=== PATIENT | female | born 2000 | race Caucasian/White ===

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

== ENCOUNTER 2023-12-06 11:08 | Emergency (ER) | payer MEDICAID, SELFPAY ==
[2023-12-06 11:09] VITALS: BP 107/83; PULSE 113; RESP 18; TEMP 37.2; O2SAT 100; BMI 22.0
[2023-12-06 11:46] VITALS: BP 103/64
[2023-12-06 11:46] LABS: Mucous, Urine 0 SEEN /hpf (<or=2+)
[2023-12-06 11:55] LABS: Color, Urine Yellow (Yellow); Glucose, Dipstick Normal (Normal); Ketone-Dipstick Negative (Negative); Leukocyte Esterase-Dipstick Negative /ul (Negative); Nitrite-Dipstick Negative (Negative); Occult Blood-Urine Negative /ul (Negative); Protein-Dipstick Negative (Negative); Specific Gravity, Urine 1.015 (1.002-1.030); Urine Bilirubin Dipstick Negative (Negative); Urine Clarity Sl. Cloudy (Clear); Urine Urobilinogen Normal (Normal)
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
[2023-12-06 11:56] LABS: Internal QC Validated? YES +Cl - CLEAR BKGD; Record Kit Lot#,Urine Preg 718086
[2023-12-06 11:59] LABS: Pregnancy, Urine Positive Negative
[2023-12-06 12:03] LABS: Red Blood Cells-Urine 0-5 SEEN /hpf (0-5); Squamous Epithelial Cells - UA 0-5 SEEN /hpf (5-10); White Blood Cells 0-5 SEEN /hpf (0-5)
[2023-12-06 12:04] LABS: Bacteria 1+ /hpf (None Seen)
[2023-12-06 12:32] VITALS: BP 111/78; PULSE 97; RESP 14; TEMP 36; O2SAT 99
== END 2023-12-06 12:47 | disposition home or self-care (01) ==
PROVIDERS: Emergency Provider Emergency Medicine; Visit Provider Emergency Medicine
DX: O99.891 Other specified diseases and conditions complicating pregnancy (principal); O99.331 Smoking (tobacco) complicating pregnancy, first trimester; R10.30 Lower abdominal pain, unspecified; F17.290 Nicotine dependence, other tobacco product, uncomplicated; Z3A.09 9 weeks gestation of pregnancy
CPT/HCPCS: 81001; 81025; 99282

== ENCOUNTER 2024-05-19 08:15 | Outpatient (CLI) | payer MEDICAID, SELFPAY ==
[2024-05-19 08:20] VITALS: PULSE 110; O2SAT 99
[2024-05-19 08:21] VITALS: BP 116/75; PULSE 111; RESP 14; TEMP 36.6; O2SAT 100
[2024-05-19 09:02] VITALS: BMI 27.7
--- NOTE | 2024-05-19 19:07 | OB.TRI.NOTE ---
HPI - General HPI Narrative GATO BOYCE, is a 23 F who presents to triage with decreased movement. Denies any loss of fluid, vaginal bleeding or contractions. Maternal Data Information AALIYAH Calculator Estimated Delivery Date Method Current WG Current Estimate 07/12/24 Manual 32w 2d PFSH PFSH Home Medications ?Medication ?Instructions ?Recorded ?Last Taken ?Type cetirizine 10 mg tablet (Zyrtec) 10 mg PO DAILY 06/21/21 Unknown History ondansetron 4 mg disintegrating 4 mg translingual Q8H 12/06/23 Unknown History tablet Allergy/AdvReac Type Severity Reaction Status Date / Time No Known Allergies Allergy Verified 12/06/23 11:09 Social History Smoking Status: Current every day smoker tobacco type: e-cigarettes substance use type: does not use ROS Eyes Eyes: Denies blurry vision Cardiovascular Cardiovascular: Reports none; Denies chest pain at rest, chest pain with activity or dizziness Respiratory/Chest Respiratory/Chest: Denies cough or dyspnea Gastrointestinal Gastrointestinal: Reports none and other; Denies diarrhea or vomiting Genitourinary Genitourinary: Denies dysuria Musculoskeletal Musculoskeletal: Reports none Integumentary Integumentary: Reports none; Denies rash Neurologic Neurologic: Denies dizziness, headache(s) or other visual disturbances Psychiatric Psychiatric: Reports none Physical Exam Const alert and no apparent distress General Appearance: cooperative Orientation / Consciousness: awake Exam Limitations: no limitations HEENT normocephalic Eyes General Eye: normal appearance of both eyes Neck full ROM Chest inspection of chest normal Resp normal respiratory effort and normal air movement Effort and Inspection: symmetric chest movement Auscultation: clear to auscultation bilaterally Cardio regular rate GI soft to palpation, non-tender and non-distended Inspection: and other Back/Spine normal ROM Extremity full ROM, normal capillary refill and no calf tenderness Skin no rashes or lesions noted Neuro oriented x3 and CN's II-XII intact bilaterally Psych mental status grossly normal NST FHR Rate Baby A Baseline: 140 Variability:: Moderate Accelerations:: 10 x 10 Decelerations:: Variable NST Reactive:: Yes FHR Category:: Category I Uterine Activity:: None Assessment & Plan (1) 32 weeks gestation of : (2) Decreased movement: PLAN: Plan NST reactive for gestational age. Patient has felt movement since arrival D/C home with kick counts and follow up in office
== END 2024-05-19 09:15 | disposition home or self-care (01) ==
LOC: WPOUT 08:18 → WP 08:19
PROVIDERS: Visit Provider Advanced Practice Midwife
DX: O36.8130 Decreased fetal movements, third trimester, not applicable or unspecified (principal); Z3A.32 32 weeks gestation of pregnancy; F17.290 Nicotine dependence, other tobacco product, uncomplicated; O99.333 Smoking (tobacco) complicating pregnancy, third trimester
CPT/HCPCS: 59025; 59050; 99221; G0378

== ENCOUNTER 2024-07-17 08:14 | Inpatient (IN) | payer MEDICAID, SELFPAY ==
[2024-07-17] VITALS (43 sets, daily range): BP systolic 101–135; BP diastolic 56–78; PULSE 91–122; RESP 14–18; TEMP 36.6–37.5; O2SAT 97–100; BMI 29.6
[2024-07-17 07:51] LABS: ROM Internal Control Test YES-OK TO RESULT pt. (Internal QC)
[2024-07-17 07:53] LABS: ROM Patient Test POSITIVE (Negative)
[2024-07-17 07:54] LABS: Record Kit Lot#, ROM+ K1660
[2024-07-17] MEDS: Lactated Ringers 1,000 ML 999 ML IV (08:35)
[2024-07-17 08:51] LABS: Absolute Lymphocyte Count 1.61 X10^3/uL (0.83-4.51); Absolute Neutrophil Count 8.9 X10^3/uL (2.0-7.7); Basophil# 0.03 X10^3/uL; Basophil% 0.3 % (0-1); Eosinophils% 1.7 % (0-5); Hematocrit 36.4 % (37-47); Hemoglobin 11.5 g/dL (12.0-15.0); Lymphocyte # 1.61 X10^3/ul (0.83-4.51); Lymphocyte % 13.7 % (19-41); Mean Corp Hgb Conc 31.6 g/dL (32-36); Mean Corpuscular Hgb 26.7 pg (27.0-32.0); Mean Corpuscular Volume 84.5 fL (81-99); Mean Platelet Vol. 10.6 fl (6.2-12.0); Monocyte# 0.95 X10^3/uL; Monocyte% 8.1 % (0-10); NRBC Flagged by Analyzer 0 % (0-5); Neutrophil # 8.89 X10^3/uL (2.7-7.7); Neutrophil % 75.4 % (47-70); Platelet Count 240 K/mm3 (150-450); RBC Distribution Width CV 14.6 % (11.6-14.6); RBC Distribution Width SD 44.9 fl (35.1-43.9); Red Blood Count 4.31 M/mm3 (4.2-5.4); White Blood Count 11.8 K/mm3 (4.4-11.0)
[2024-07-17 09:06] LABS: Amphetamine Urine VISTA NEGATIVE (<1000 ng/mL); Barbiturate Urine VISTA NEGATIVE (< 200 ng/mL); Benzodiazepine Urine VISTA NEGATIVE (< 200 ng/mL); Cocaine Urine VISTA NEGATIVE (< 300 ng/mL); Ecstacy Urine VISTA NEGATIVE (< 500 ng/mL); Methadone Urine VISTA NEGATIVE (< 300 ng/mL); PCP Urine VISTA NEGATIVE (< 25 ng/mL); THC Urine VISTA POSITIVE (< 50 ng/mL); Vista UDS pH Range 6
--- NOTE | 2024-07-17 09:12 | NURSING ---
reason for social service consult - patient uses THC daily, FOB states he is an alcoholic and patients both struggle with alcohol and drug use and when asked about housing states we just need to clean house but hesitated with quality of housing condition
[2024-07-17 09:25] LABS: Syphilis Antibodies Non-reactive
[2024-07-17] MEDS: Lactated Ringers 1,000 ML 200 ML IV ×3 (09:36→18:46)
[2024-07-17] MEDS: fentaNYL-bupivacaine (epidural) 100 ML BAG EPIDURAL ×3 (10:43→19:31)
[2024-07-17] MEDS: 0.9% Saline Lock 10 ML Syringe IV ×2 (12:56→18:47)
[2024-07-17] MEDS: Oxytocin 15 Units/NS 250ml 15 UNITS/250 ML IV.SOLN 2 UNITS IV (13:03)
[2024-07-17] MEDS: Acetaminophen 500 MG Tablet PO (16:06)
[2024-07-17] MEDS: Ondansetron 4 MG/2 ML Vial IV (16:43)
[2024-07-17] MEDS: Mag Hydrox/Al Hydrox/Simeth 30 ML UDC PO (20:30)
[2024-07-17] MEDS: DiphenhydrAMINE 50 MG/ML Syringe 25 MG IV (21:28)
[2024-07-17] MEDS: LACTATED RINGERS 500 ML 999 ML IV (22:08)
[2024-07-18] VITALS (20 sets, daily range): BP systolic 97–139; BP diastolic 45–86; PULSE 78–115; RESP 16; TEMP 36.2–37.4; O2SAT 97–98
[2024-07-18] MEDS: Oxytocin 15 Units/NS 250ml 15 UNITS/250 ML IV.SOLN 334 UNITS IV (00:44)
--- NOTE | 2024-07-18 01:06 | PCM.HP.OB ---
HPI - General General Date of Admission: 07/17/24 HPI Narrative GATO BOYCE, is a 23 F who presents 40w6d in active labor at term. SROM at home around 0530, clear. Presented to L&D with regular contractions and positive ROM plus. Maternal Data Information AALIYAH Calculator Estimated Delivery Date Method Current WG Current Estimate 07/12/24 Manual 40w 6d PFSH PFSH Medical History (Updated 07/18/24 @ 01:12 by Shilpa Cook CNM) Anxiety Depression Home Medications ?Medication ?Instructions ?Recorded ?Last Taken ?Type cetirizine 10 mg tablet (Zyrtec) 10 mg PO DAILY 06/21/21 Unknown History ondansetron 4 mg disintegrating 4 mg translingual Q8H 12/06/23 Unknown History tablet vit no.95-ferrous 1 tab PO DAILY 07/17/24 Unknown History fumarate 28 mg-folic acid 800 mcg tablet () Allergy/AdvReac Type Severity Reaction Status Date / Time No Known Allergies Allergy Verified 07/17/24 07:35 Social History Smoking Status: Current every day smoker tobacco type: e-cigarettes substance use type: does not use History Elective abortions Hx Para 0 Spontaneous abortions Hx # Term Pregnancies Ectopic pregnancies Hx # Pregnancies Multiple births # of living children NST FHR Rate Baby A Baseline: 145 Variability:: Moderate Accelerations:: 15 x 15 Decelerations:: None FHR Category:: Category I Uterine Activity:: every 2 minutes Vital Signs Vital Signs Vital Signs: 07/17/24 08:54 07/17/24 08:54 07/17/24 08:54 Temperature Temperature Source Temporal Pulse Rate 91 Respiratory Rate Blood Pressure 118/77 BP Systolic 118 BP Diastolic 77 Pulse Ox 07/17/24 08:54 07/17/24 08:54 07/17/24 10:16 Temperature 97.8 F Temperature Source Pulse Rate Respiratory Rate 16 Blood Pressure 119/75 BP Systolic 119 BP Diastolic 75 Pulse Ox 07/17/24 10:16 07/17/24 10:16 07/17/24 10:16 Temperature Temperature Source Pulse Rate 99 99 Respiratory Rate Blood Pressure BP Systolic BP Diastolic Pulse Ox 98 07/17/24 10:16 07/17/24 10:16 07/17/24 10:16 Temperature Temperature Source Temporal Pulse Rate 101 H Respiratory Rate 14 Blood Pressure BP Systolic BP Diastolic Pulse Ox 07/17/24 10:16 07/17/24 10:16 07/17/24 10:30 Temperature 98.6 F Temperature Source Pulse Rate 97 Respiratory Rate Blood Pressure BP Systolic BP Diastolic Pulse Ox 99 07/17/24 10:30 07/17/24 10:35 07/17/24 10:35 Temperature Temperature Source Pulse Rate 98 Respiratory Rate Blood Pressure BP Systolic BP Diastolic Pulse Ox 99 99 07/17/24 10:35 07/17/24 10:39 07/17/24 10:39 Temperature Temperature Source Pulse Rate 95 Respiratory Rate 14 Blood Pressure 106/65 BP Systolic 106 BP Diastolic 65 Pulse Ox 07/17/24 10:40 07/17/24 10:40 07/17/24 10:41 Temperature Temperature Source Pulse Rate 98 Respiratory Rate 14 Blood Pressure BP Systolic BP Diastolic Pulse Ox 97 07/17/24 10:42 07/17/24 10:42 07/17/24 10:45 Temperature Temperature Source Pulse Rate 101 H 106 H Respiratory Rate Blood Pressure 117/75 BP Systolic 117 BP Diastolic 75 Pulse Ox 07/17/24 10:45 07/17/24 10:46 07/17/24 10:46 Temperature Temperature Source Pulse Rate 106 H Respiratory Rate Blood Pressure 113/73 BP Systolic 113 BP Diastolic 73 Pulse Ox 99 07/17/24 10:46 07/17/24 10:50 07/17/24 10:50 Temperature Temperature Source Temporal Pulse Rate 105 H Respiratory Rate 14 Blood Pressure BP Systolic BP Diastolic Pulse Ox 07/17/24 10:50 07/17/24 10:50 07/17/24 10:51 Temperature 99.1 F Temperature Source Pulse Rate Respiratory Rate Blood Pressure 114/68 BP Systolic 114 BP Diastolic 68 Pulse Ox 100 07/17/24 10:51 07/17/24 10:55 07/17/24 10:55 Temperature Temperature Source Pulse Rate 106 H 113 H Respiratory Rate Blood Pressure BP Systolic BP Diastolic Pulse Ox 99 07/17/24 10:56 07/17/24 10:56 07/17/24 11:00 Temperature Temperature Source Pulse Rate 114 H 97 Respiratory Rate Blood Pressure 114/60 BP Systolic 114 BP Diastolic 60 Pulse Ox 07/17/24 11:00 07/17/24 11:03 07/17/24 11:03 Temperature Temperature Source Pulse Rate 109 H Respiratory Rate Blood Pressure 116/73 BP Systolic 116 BP Diastolic 73 Pulse Ox 99 07/17/24 11:05 07/17/24 11:05 07/17/24 11:06 Temperature Temperature Source Pulse Rate 111 H Respiratory Rate Blood Pressure 115/73 BP Systolic 115 BP Diastolic 73 Pulse Ox 99 07/17/24 11:06 07/17/24 11:10 07/17/24 11:10 Temperature Temperature Source Pulse Rate 109 H 94 Respiratory Rate Blood Pressure BP Systolic BP Diastolic Pulse Ox 99 07/17/24 11:11 07/17/24 11:11 07/17/24 11:15 Temperature Temperature Source Pulse Rate 108 H 95 Respiratory Rate Blood Pressure 122/75 H BP Systolic 122 BP Diastolic 75 Pulse Ox 07/17/24 11:15 07/17/24 11:17 07/17/24 11:17 Temperature Temperature Source Pulse Rate 122 H Respiratory Rate Blood Pressure 122/75 H BP Systolic 122 BP Diastolic 75 Pulse Ox 100 07/17/24 11:20 07/17/24 11:20 07/17/24 11:23 Temperature Temperature Source Pulse Rate 118 H Respiratory Rate Blood Pressure 121/78 H BP Systolic 121 BP Diastolic 78 Pulse Ox 99 07/17/24 11:23 07/17/24 11:26 07/17/24 11:26 Temperature Temperature Source Pulse Rate 96 117 H Respiratory Rate Blood Pressure 118/73 BP Systolic 118 BP Diastolic 73 Pulse Ox 07/17/24 11:31 07/17/24 11:36 07/17/24 11:36 Temperature Temperature Source Pulse Rate 95 Respiratory Rate Blood Pressure 116/71 114/68 BP Systolic 116 114 BP Diastolic 71 68 Pulse Ox 07/17/24 11:41 07/17/24 11:41 07/17/24 11:46 Temperature Temperature Source Pulse Rate 100 Respiratory Rate Blood Pressure 111/76 107/75 BP Systolic 111 107 BP Diastolic 76 75 Pulse Ox 07/17/24 11:46 07/17/24 11:51 07/17/24 11:51 Temperature Temperature Source Pulse Rate 98 101 H Respiratory Rate Blood Pressure 106/66 BP Systolic 106 BP Diastolic 66 Pulse Ox 07/17/24 11:56 07/17/24 11:56 07/17/24 12:54 Temperature 98.5 F Temperature Source Temporal Pulse Rate Respiratory Rate Blood Pressure 101/58 L BP Systolic 101 BP Diastolic 58 Pulse Ox 07/17/24 12:54 07/17/24 12:54 07/17/24 12:54 Temperature Temperature Source Temporal Pulse Rate 96 96 Respiratory Rate Blood Pressure BP Systolic BP Diastolic Pulse Ox 07/17/24 12:54 07/17/24 12:54 07/17/24 12:54 Temperature 98.4 F Temperature Source Pulse Rate Respiratory Rate 14 Blood Pressure BP Systolic BP Diastolic Pulse Ox 98 07/17/24 14:00 07/17/24 14:00 07/17/24 14:00 Temperature Temperature Source Temporal Pulse Rate 108 H Respiratory Rate Blood Pressure 105/56 L BP Systolic 105 BP Diastolic 56 Pulse Ox 07/17/24 14:00 07/17/24 14:00 07/17/24 14:00 Temperature 98.9 F Temperature Source Pulse Rate Respiratory Rate 14 Blood Pressure BP Systolic BP Diastolic Pulse Ox 98 07/17/24 15:35 07/17/24 15:35 07/17/24 15:35 Temperature Temperature Source Temporal Pulse Rate 111 H Respiratory Rate Blood Pressure 107/61 BP Systolic 107 BP Diastolic 61 Pulse Ox 07/17/24 15:35 07/17/24 15:35 07/17/24 15:35 Temperature Temperature Source Pulse Rate 109 H Respiratory Rate 14 Blood Pressure BP Systolic BP Diastolic Pulse Ox 99 07/17/24 15:35 07/17/24 16:13 07/17/24 16:13 Temperature 98.8 F Temperature Source Pulse Rate 102 H Respiratory Rate Blood Pressure 117/68 BP Systolic 117 BP Diastolic 68 Pulse Ox 07/17/24 16:13 07/17/24 16:13 07/17/24 16:13 Temperature Temperature Source Tympanic Pulse Rate 107 H Respiratory Rate Blood Pressure BP Systolic BP Diastolic Pulse Ox 99 07/17/24 16:13 07/17/24 16:13 07/17/24 16:13 Temperature 99.2 F H Temperature Source Pulse Rate Respiratory Rate 15 Blood Pressure BP Systolic BP Diastolic Pulse Ox 100 07/17/24 17:35 07/17/24 17:35 07/17/24 17:35 Temperature Temperature Source Tympanic Pulse Rate 101 H Respiratory Rate Blood Pressure 117/59 L BP Systolic 117 BP Diastolic 59 Pulse Ox 07/17/24 17:35 07/17/24 17:35 07/17/24 17:35 Temperature 99.5 F H Temperature Source Pulse Rate Respiratory Rate 16 Blood Pressure BP Systolic BP Diastolic Pulse Ox 100 07/17/24 18:49 07/17/24 18:49 07/17/24 18:49 Temperature Temperature Source Temporal Pulse Rate 98 Respiratory Rate Blood Pressure 117/72 BP Systolic 117 BP Diastolic 72 Pulse Ox 07/17/24 18:49 07/17/24 18:49 07/17/24 19:16 Temperature 99.0 F Temperature Source Pulse Rate Respiratory Rate 16 Blood Pressure 125/70 H BP Systolic 125 BP Diastolic 70 Pulse Ox 07/17/24 19:16 07/17/24 19:16 07/17/24 19:16 Temperature Temperature Source Pulse Rate 115 H 106 H Respiratory Rate Blood Pressure BP Systolic BP Diastolic Pulse Ox 98 07/17/24 20:20 07/17/24 20:20 07/17/24 20:20 Temperature Temperature Source Temporal Pulse Rate 99 Respiratory Rate 16 Blood Pressure BP Systolic BP Diastolic Pulse Ox 07/17/24 20:20 07/17/24 20:20 07/17/24 20:21 Temperature 98.2 F Temperature Source Pulse Rate Respiratory Rate Blood Pressure 109/66 BP Systolic 109 BP Diastolic 66 Pulse Ox 98 07/17/24 20:21 07/17/24 20:57 07/17/24 20:57 Temperature Temperature Source Pulse Rate 94 95 Respiratory Rate Blood Pressure BP Systolic BP Diastolic Pulse Ox 97 07/17/24 20:57 07/17/24 20:57 07/17/24 20:57 Temperature 99.2 F H Temperature Source Temporal Pulse Rate Respiratory Rate 18 Blood Pressure BP Systolic BP Diastolic Pulse Ox 07/17/24 20:58 07/17/24 20:58 07/17/24 22:40 Temperature Temperature Source Temporal Pulse Rate 93 Respiratory Rate Blood Pressure 135/69 H BP Systolic 135 BP Diastolic 69 Pulse Ox 07/17/24 22:40 07/17/24 22:40 07/17/24 22:40 Temperature Temperature Source Pulse Rate 96 Respiratory Rate 16 Blood Pressure 127/58 H BP Systolic 127 BP Diastolic 58 Pulse Ox 07/17/24 22:40 07/17/24 22:40 07/18/24 01:02 Temperature 99.1 F Temperature Source Pulse Rate Respiratory Rate Blood Pressure 129/70 H BP Systolic 129 BP Diastolic 70 Pulse Ox 99 07/18/24 01:02 Temperature Temperature Source Pulse Rate 111 H Respiratory Rate Blood Pressure BP Systolic BP Diastolic Pulse Ox Weight Weight: 151 lb 12.8 oz Body Mass Index (BMI) 29.6 Labs Labs Labs: Blood Type A POSITIVE Antibody Screen NEGATIVE Hct 36.4 % (37-47) L Hgb 11.5 g/dL (12.0-15.0) L Syphilis Total Ab Non-reactive GBS negative Rubella non immune HIV negative HepC negative HBsAG negative RPR negative A positive GC/CT negative Assessment & Plan (1) Vaping nicotine dependence, tobacco product: (2) Marijuana use during : (3) History of depression: (4) Rubella non-immune status, antepartum: (5) History of anxiety: (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 Maciel collaborative physician and notified of patient status, above assessment, and plan.
--- NOTE | 2024-07-18 01:06 | EX.PCM.OBRPT ---
Assessment & Plan (1) Vaginal delivery: (2) First degree perineal laceration: (3) Shoulder dystocia, delivered: COMMENT: Mild, relieved by McRobert's Maternal Data Information AALIYAH Calculator Estimated Delivery Date Method Current WG Current Estimate 07/12/24 Manual 40w 6d Vaginal Delivery Maternal Presentation Maternal Presentation: Active Labor and Spontaneous Rupture of Membranes Operative Information Date of Procedure: 07/18/24 Pre-Operative Diagnosis: Active Labor, SROM Post-Operative Diagnosis: , 1st degree perineal laceration Surgery / Procedure Performed: Spontaneous Vaginal Delivery Type of Anesthesia: Epidural Estimated Blood Loss: 350ml Time of Delivery: 00:39 Findings Description of Procedure: Progressed to complete with urge to push. Epidural for pain management, mildly effective and increased pain. of viable male infant over 1st degree perineal laceration. APGARS 8,9 respectively. head delivered with body not forthcoming, McRobert's position and then body immediately forthcoming. Mild shoulder dystocia lasting approximately 40 seconds. Placed on maternal abdomen, strong cry. Mouth and nares suctioned for secretions. Pitocin started for active 3rd stage management. Cord doubly clamped and cut by FOB after pulsations ceased, delayed cord clamping. Placenta delivered intact via sue, 3 vessel cord intact. Perineum inspected and revealed 1st degree perineal laceration. Repaired with 3.0 vicryl rapide and lidocaine. Fundus firm and hemostasis achieved. EBL 350ml. Mom and baby stable, planning to breastfeed. Family bonding well. notified of delivery. Presentation: Vertex and DEMETRIUS Amniotic Membrane Rupture Type: Spontaneous Amniotic Fluid Description: Clear Placental Delivery Description: Spontaneous Placenta Disposition: [facility] Cord Vessel Description: 3 Vessels Cord Entanglement: None Infant A Gender: Male (1 minute): 9 (5 minute): 9 Delayed Cord Clamping: Yes Post Vaginal Delivery Medications Given After Delivery: IV Pitocin Episiotomy Description: None Laceration: Perineal Extension/lac and 1st degree Complication Complications: None
[2024-07-18] MEDS: Oxytocin 15 Units/NS 250ml 15 UNITS/250 ML IV.SOLN 83 UNITS IV (01:15)
[2024-07-18] MEDS: Benzocaine/Lanolin/Aloe Vera 85 GM Spray 1 SPRAY TOPICAL (08:42)
[2024-07-18] MEDS: Senna/Docusate Sodium 1 Tablet PO (08:42)
[2024-07-19 01:22] VITALS: BP 124/76; PULSE 104; RESP 16; TEMP 36.4; O2SAT 97
[2024-07-19 05:59] LABS: Absolute Lymphocyte Count 2.85 X10^3/uL (0.83-4.51); Absolute Neutrophil Count 14.4 X10^3/uL (2.0-7.7); Basophil# 0.05 X10^3/uL; Basophil% 0.3 % (0-1); Eosinophil# 0.32 X10^3/uL; Eosinophils% 1.7 % (0-5); Hemoglobin 9.6 g/dL (12.0-15.0); Lymphocyte # 2.85 X10^3/ul (0.83-4.51); Lymphocyte % 15.1 % (19-41); Mean Corpuscular Volume 84.5 fL (81-99); Mean Platelet Vol. 9.8 fl (6.2-12.0); Monocyte# 1.24 X10^3/uL; Monocyte% 6.6 % (0-10); NRBC Flagged by Analyzer 0 % (0-5); Neutrophil # 14.36 X10^3/uL (2.7-7.7); Neutrophil % 75.7 % (47-70); Platelet Count 226 K/mm3 (150-450); RBC Distribution Width CV 14.9 % (11.6-14.6); RBC Distribution Width SD 46.1 fl (35.1-43.9); Red Blood Count 3.55 M/mm3 (4.2-5.4); White Blood Count 18.9 K/mm3 (4.4-11.0)
[2024-07-19 08:00] VITALS: BP 121/81; PULSE 93; RESP 16; TEMP 36.3; O2SAT 97
--- NOTE | 2024-07-19 08:12 | NURSING ---
This nurse noticed a vape laying in bed next to patient. Told patient that she is not supposed to be vaping. Pt denies that she is vaping in her room.
--- NOTE | 2024-07-19 08:20 | PN.OBGYN_ITS ---
Subjective Subjective Doing well. No complaints. Voiding and ambulating without difficulty. Mild lochia. Breast feeding. Objective Data Objective Data Vital Signs: Vital Signs Temp Pulse Resp BP Pulse Ox O2 Del Method 97.3 F L 93 16 121/81 H 97 Room Air 07/19/24 08:00 07/19/24 08:00 07/19/24 08:00 07/19/24 08:00 07/19/24 08:00 07/19/24 08:00 Oxygen Delivery Method Room Air Weight: 68.855 kg Body Mass Index (BMI) 29.6 Intake & Output: Intake and Output for Last 24 Hours 07/17/24 07/18/24 07/19/24 23:59 23:59 23:59 Intake Total 2860.73 / 2860.73 1948.57 / 1948.57 Output Total 1175 / 1175 600 / 600 Balance 1685.73 / 1685.73 1348.57 / 1348.57 Lab / Micro Data 07/19/24 05:50 Labs: Laboratory Results - last 24 hr 07/19/24 05:50: WBC 18.9 H, RBC 3.55 L, Hgb 9.6 L, Hct 30.0 L, MCV 84.5, MCH 27.0, MCHC 32.0, RDW Std Deviation 46.1 H, RDW Coeff of Joseph 14.9 H, Plt Count 226, MPV 9.8, Immature Gran % (Auto) 0.600, Neut % (Auto) 75.7 H, Lymph % (Auto) 15.1 L, Armstrong % (Auto) 6.6, Eos % (Auto) 1.7, Baso % (Auto) 0.3, Absolute Neuts (auto) 14.4 H, Absolute Lymphs (auto) 2.85, Nucleated RBC % 0 ROS Constitutional Constitutional: Denies fatigue, fever(s) or malaise Eyes Eyes: Denies change in vision ENT HEENT: Denies dizziness or headache(s) Cardiovascular Cardiovascular: Denies chest pain, dyspnea or lightheadedness Respiratory/Chest Respiratory/Chest: Denies cough or dyspnea Gastrointestinal Gastrointestinal: Denies change in bowel habits Genitourinary Genitourinary: Denies burning urination or genital lesions Integumentary Integumentary: Denies rash Neurologic Neurologic: Denies confusion, dizziness, headache(s), numbness or weakness Physical Exam Const alert and no apparent distress Narrative: Fundus firm, below umbilicus. Assessment & Plan (1) Shoulder dystocia, delivered: COMMENT: Mild, relieved by McRobert's (2) Vaginal delivery: (3) Vaping nicotine dependence, tobacco product: (4) Marijuana use during : PLAN: Plan Discharge home
--- NOTE | 2024-07-19 08:22 | DS.PCM_ITS ---
Providers Date of Admission: 07/17/24 Date of Discharge: 07/19/24 Primary Care Physician: No Primary Care Phys Reason For Visit: LABOR Diagnosis Discharge Diagnosis (1) Shoulder dystocia, delivered: Status: Acute Code(s): O66.0 - Obstructed labor due to shoulder dystocia (2) Vaginal delivery: Status: Acute Code(s): O80 - Encounter for full-term uncomplicated delivery (3) Vaping nicotine dependence, tobacco product: Status: Acute Code(s): F17.290 - Nicotine dependence, other tobacco product, uncomplicated (4) Marijuana use during : Status: Acute Code(s): O99.320 - Drug use complicating , unspecified trimester; F12.90 - Cannabis use, unspecified, uncomplicated Plan Discharge home Medications at Discharge Home Medications cetirizine 10 mg tablet (Zyrtec) 10 mg PO DAILY 06/21/21 vit no.95-ferrous fumarate 28 mg-folic acid 800 mcg tablet () 1 tab PO DAILY 07/17/24 Hospital Course Operations None Procedures None Summary of Care Provided Minutes Spent on Discharge: 20 Hospital Course: Presented with SROM. Delivered by with mild shoulder dystocia. Breast feeding Physical Exam Const alert and no apparent distress Narrative: Fundus firm, below umbilicus. Weight / BMI Weight Weight: 68.855 kg Body Mass Index (BMI) 29.6 ABG / Lab / Microbiology Data 07/19/24 05:50 Laboratory: Laboratory Results - last 24 hr 07/19/24 05:50: WBC 18.9 H, RBC 3.55 L, Hgb 9.6 L, Hct 30.0 L, MCV 84.5, MCH 27.0, MCHC 32.0, RDW Std Deviation 46.1 H, RDW Coeff of Joseph 14.9 H, Plt Count 226, MPV 9.8, Immature Gran % (Auto) 0.600, Neut % (Auto) 75.7 H, Lymph % (Auto) 15.1 L, Taliaferro % (Auto) 6.6, Eos % (Auto) 1.7, Baso % (Auto) 0.3, Absolute Neuts (auto) 14.4 H, Absolute Lymphs (auto) 2.85, Nucleated RBC % 0 D/C Instructions May resume sexual activity in: 6 weeks Please Follow Up With: Carly Maciel MD When: Follow up with our office in 1-2 and 6 weeks or as needed. [phone] Meaningful Use Info Meaningful Use Meaningful Use Diagnoses (Choose all that apply): None applicable Ischemic Stroke Statin Dosing Therapy Reference: STATIN DOSE THERAPY REFERENCE: * Patients > 75 years receive moderate or high dose statin therapy. * Patients 75 years or YOUNGER should receive HIGH intensity statin dose unless contraindicated. You will be required to document reason for non-treatment if statin daily dose does not meet guidelines. HIGH DOSE STATIN THERAPY DAILY Atorvastatin > than or = to 40 mg Rosuvastatin > than or = to 20 mg Amlodipine + Atorvastatin > than or = to 2.5/40 mg Ezetimibe + Simvastatin 10/80 mg Simvastatin 80mg Discharge Plan Admission Admit Date/Time: 07/17/24 08:14 Attending Provider: Shilpa Cook Primary Care Provider: Care Physician,No Primary Discharge Orders/Prescriptions Prescriptions: Continued cetirizine [Zyrtec] 10 mg Tablet 10 mg PO DAILY PNV cmb#95-ferrous fumarate-FA [] 28 mg iron- 800 mcg tablet 1 tab PO DAILY Discontinued ondansetron 4 mg tablet,disintegrating 4 mg translingual Q8H Patient Comments: dissolve 1 tablet ON TONGUE every 8 hours if needed for nausea Referrals / Follow Up: Care Physician,No Primary [Primary Care Provider] - Disposition Disposition (needs filled in before D/C Order can be placed): Home, Self Care
--- NOTE | 2024-07-19 11:53 | NURSING ---
Reviewed and agree with student charting that is used for educational and learning purposes.
[2024-07-19 12:10] VITALS: BP 123/70; PULSE 102; RESP 16; TEMP 36.3; O2SAT 100
--- NOTE | 2024-07-20 09:26 | CASEMGMT ---
Social Work Assessment Labor and Delivery Unit Patient Address: [address] [place] [address] Phone number:[phone] Date of Referral: 07/17/24 Time of Referral: 0910? Referred By: Shilpa Cook Date of Intervention: ??07/18/24 Time of Intervention:? 1200 Reason for Referral:? marijuana use during Sw completed chart review and acknowledges social work consult. Sw presented to bedside and introduced self to mother of baby (MOB- Keena) and father of baby (FOB- Yuniel Howell, : 02). Sw explained reason for sw involvement and completed psychosocial assessment. Sw completed majority of assessment, and then visitors presented to bedside, so sw left and agreed to return at later time. Sw returned to bedside to complete assessment later in day and met with MOB and FOB again. FOB then stepped out of room momentarially. At that time sw provided MOB with [place] Depression Scale and assessed for safety within the home. History obtained from: medical records, MOB and FOB. ??? Household composition: Parents report that currently residing in their two bedroom home them selves and LISA's step brother. Parents report that he will be residing with them for 6 months and then the will have his own room. Parents deny any issues or concerns with their current housing. Patient's parent/guardian status:? ?MOB states that she and FOB met through social media, and have been together for the past year. baby is first child for both parents. While meeting with MOB privately, sw assessed for any concerns regarding violence or intimate partner violence within their relationship and MOB denied. - Throughout conversation FOB had made statements regarding nursing staff and how they were too close to MOB while talking to her and this made him uncomfortable, reporting that his mind goes to the worst case scenario. But when prompted, he states that it just made him uncomfortable with how close the nurse was talking to MOB. MOB then accused FOJorge of being too overprotective. Medical History: ?ANTONIO is 23 year old female who is 1, para 0- now 1 following labor and delivery of . ANTONIO received routine care during with [facility]. ANTONIO presented to hospital and delivered baby via vaginal delivery on 07/18/24 in the mechanotherapist. Baby boy, Thor, was born weighing 8lb 11oz. MOB states that she is breast feeding and baby will be followed by Dr. Bell for pediatrics. Educational Status:? ANTONIO reports that she completed the 11th grade and dropped out of school just a couple of weeks before graduating. LISA states that he graduated from high school. Financial Status: LISA is employed outside of the home. He reports that he works for [employer] and is able to take one week off of work. MOB is not working at this time. ANTONIO is financially dependent upon LISA to help with fiances. Infant Supplies: Parents report that they have obtained all necessary baby supplies, including: car seat, safe sleep space, clothes, diapers and wipes. Childcare/Caregiver(s):?MOB will be the primary childcare provider/ caregiver to baby, along with FOJorge when he is not at work. Transportation:?? ANTONIO does not drive, she does not have her drivers license. LISA has his drivers license and a reliable vehicle. LISA states that when MOB has an appointment or baby has an appointment that they have to go to his employer is understanding and he is able to flex his work hours to take them to the appointments. Programs/Agencies Involved: ANTONIO is connected to community resources through [facility] (insurance: [employer]) and [facility]. MOB was reminded to call WIC and inform them that baby has been born. MOB was also encouraged to follow up with [employer] to apply for food stamps. Children Services/Legal Issues:???No history of children services involvement as parents. Sw informed MOB and FOB of need for sw to make referral to [facility] due to maternal substance use during . So stated that sw to inform Children Services of paternal alcohol use and parents mental health history. ANTONIO stated that she had talked to some of her friends about this and was informed that this would happen. MOB expressed understanding of need for sw to make referral. - Angel called [facility] and spoke to on-call, hotline screenerFilomena. Behavioral Health Issues: ??Mental Health History:?FOJorge states that he has been diagnosed with ADHD, anxiety and depression. FOB also states that his mom has told him she believes that he is Bi-polar, however he has never officially been diagnosed with that. ?FOB denies any medications prescribed at this time to help him manage his mental health symptoms. ANTONIO reports that she has also been diagnosed with ADHD, and anxiety and depression. MOB also is not prescribed any medications to help her manage her mental health symptoms. Angel asked ANTONIO to complete the [place] Depression Scale, her score was a 7. Sw provided education and support. Sw encouraged ANTONIO to talk to her OBGYN about getting started on something low dose to help her manage her mental health during this period. MOB stated that she will think about it. Sw also encouraged MOB to get connected to a mental health specialist to talk to as well. Sw educated ANTONIO on the benefits of a mental health specialist and how it is beneficial to talk to someone during this period, and to learn healthy and appropriate coping skills. ANTONIO expressed understanding, states that she had a counselor in the past, but has not talked to someone in a long time. ? Substance Use History:??ANTONIO states that she has smoked marijuana daily for years to help with her eating disorder and to help manage her mental health. ANTONIO states that she will go 2-3 days without eating, and then when eventually realizing that she has not eaten, she will look in the refrigerator to eat something, but nothing looks good to her. MOB states that the marijuana helps her have an appetite. FOJorge states that he drinks 3 bottle of Black Velvet every two weeks. LISA is unable to say how many drinks he has in a night, just that in two weeks time he goes through three bottles. ANTONIO denies alcohol during , but states that prior to she would drink on the weekends a couple of times a month. Family History:??Maternal grandma also has a history with alcohol and drug use. ANTONIO states that she is unsure what her exact history is. ANTONIO states that she is not close to her mom at this time, however her mom was a support person during labor and delivery. Drug Screens: MOB and baby were positive at time of delivery for THC (urine). Meconium is still pending. Family/Social Stressors:? Parents do not acknowledge any issues, concerns or stressors at this time. Parents report that they are excited baby is here. FOB does acknowledge that he is nervous to hold baby because baby is fragile. FOB states that he also thinks that the does not like me. FOB states that when he hold the baby he cries and when he hands him off to MOB, the baby stops crying. Sw educated FOB that is used to MOB's heartbeat and her voice, along with her smell. Sw stated that baby will also get used to FOB, and encouraged FOB to still be proactive in holding baby, doing skin to skin and care. FOB stated he would try, but still expressed feeling uneasy about it. Support Systems:MOB states that her best friend, her grandma and her mom are her biggest supports. Staff report that even though maternal grandma was here during labor and delivery she was not observed to be a good support for MOB. Depression/Shaken Baby/Safe Sleeping: Sw educated parents on signs and symptoms of baby blues and mood and anxiety disorders. Sw explained that MOB's [place] scores are already indicative of mild depression and anxiety. Sw also encouraged MOB to get reconnected with a mental health professional during this period. Sw asked MOB if she would like sw to help link her to someone, and MOB declined. Sw asked FOB if he would be able to recognize if MOB were struggling with her mental health. FOB stated that he would do his best, however stated that MOB is going to be by herself a lot of the time due to him working and then sleeping. FOB stated that he hopes that if she were to struggle with her mental health she would talk to him about it or someone else that would know how to respond to that. FOB stated that he is not sure how he would support MOB if she was going through a hard time. Sw encouraged parents to talk about this prior to their discharge from the hospital. Sw educated parents on shaken baby prevention and ABCs of safe sleep. Parents express understanding. At one time when sw presented to room, MOB was laying down in bed- awake, and baby was laying in bed with MOB on a pillow. Sw reiterated importance of safe sleep, and reminded MOB to place baby in isolette when he or MOB is sleeping. ASSESSMENT:? MOB and baby admitted following labor and delivery. Parents with significant mental health history and substance use prior to and during . MOB stated that she smoked marijuana daily to help with her appetite and to help ease her depression and anxiety. MOB and FOB aware that these concerns were going to be reported to [facility]. Parents have everything that they need for baby, and MOB reports to having some natural supports in place. LISA was observed to have a defensive and paranoid personality, when he expressed concern that a nurse was standing to close to MOB while talking with her. LISA made several inappropriate comments about baby to staff. doesn't he look like I just shit him out is one example. Parents were receptive to meeting with sw, and engaged politely throughout conversation. Lots of education and information provided. At several points of conversation MOB appeared to be overwhelmed and obviously sleep deprived, but always polite and willing to engage. Safe Plan of Care for infant related to substance use:?When discussing a safe plan of care with MOB. Sw explained to MOB that she should not smoke around baby- including nicotine and THC. Sw along with bedside nursing staff and , explained to MOB that if she choses to continue to smoke THC to assist with her eating ability and self medicate to help aide in her mental health, than she should stop breast feeding. Or if she wants to stop smoking marijuana than continuing to provide breast milk for her baby would be safe. Sw, bedside RN and all educated MOB on how THC remains in breast milk up to 12 days after use. Sw also educated MOB on the effects THC in breast milk has on baby (lethargic, slower to eat, and eat less when at the breast- eating for shorter period of times, can be slower to gain weight, and worse case potentially become failure to thrive). When discussing this LISA states I don't know about all of that, I was an 8# baby and look at me now. Sw explained that that reference has no correlation to this situation. - When discussing this plan with MOB, MOB stated: I am going to continue to smoke, and after I smoke I will pump and reserve that milk for when baby needs a downer. Then when I drink caffeine, I will pump and reserve that milk for when baby needs an upper. When I drink alcohol, I will pump and save that milk for milk baths for baby. MOB still not completely comprehending that when smoking THC it stays in her system for 12 days. Nursing staff, and sw all explained this and reiterated these concerns to MOB. The next day, MOB was still choosing to breast feed baby, with intentions of still smoking marijuana. All of these concerns were explained to Children Services. - Angel followed up with [facility] the following day (07/19). The hotline screener reported that the referral will automatically be screened in and assigned to an packing line worker due to baby testing positive at time of delivery. Hotline screener stated that due to marijuana being legal this will not hold up baby from being discharged with parents when medically ready for discharge. Sw passed along this follow up information to bedside RN who assisted parents in preparing for discharge on 07/19/ PLAN:?? No other services requested or indicated. MOB and baby to be discharged when medically ready. Parents were provided literature regarding: signs and symptoms of baby blues and mood and anxiety disorders, Help Me Grow, shaken baby prevention, ABCs of safe sleep and a list of county resources that are available for them should any needs present themselves. Hilary Chaves, WINDOW AND SIDING CRAFTSMAN, VOCATIONAL ED INSTRUCTOR
--- NOTE | 2024-08-15 10:08 | CASEMGMT ---
Labor and Delivery Supervisor [employer] Sw received mandated manager human resources letter indicating that referral made by this psychologist social on 07/18/24 was screened in. The assigned template worker is: Adina Sheth ([phone]. No other needs or concerns at this time. Hilary Chaves, SOLAR PROJECT MANAGER, DIRECTOR OF RESPIRATORY THERAPY
== END 2024-07-19 15:00 | disposition home or self-care (01) | DRG 560 ==
LOC: WPOUT 08:18 → WP 08:18
PROVIDERS: Admitting Provider Advanced Practice Midwife; Referring Provider Advanced Practice Midwife; Visit Provider Advanced Practice Midwife
DX: O42.02 Full-term premature rupture of membranes, onset of labor within 24 hours of rupture (principal); Z37.0 Single live birth; O99.324 Drug use complicating childbirth; F12.90 Cannabis use, unspecified, uncomplicated; F17.290 Nicotine dependence, other tobacco product, uncomplicated; O70.0 First degree perineal laceration during delivery; O66.0 Obstructed labor due to shoulder dystocia; O99.334 Smoking (tobacco) complicating childbirth; Z3A.40 40 weeks gestation of pregnancy; Z14.1 Cystic fibrosis carrier; Z78.9 Other specified health status; Z86.59 Personal history of other mental and behavioral disorders
CPT/HCPCS: 59025; 59050; 80307; 84112; 85025; 86780; 86850; 86900; 86901; 99221; J7120; A4216; G0378; J2405

== ENCOUNTER → 2025-04-06 | Outpatient (CLI) | payer MEDICAID, SELFPAY ==
--- NOTE | 2025-04-06 12:33 | US_ITS ---
PROCEDURE: TRANSVAGINAL W/PREG US 04/06/2025 REASON FOR EXAM: RSIDED PAIN, BLEEDING IN TECHNIQUE: TRANSVAGINAL W/PREG US COMPARISON: None. FINDINGS: Comments: LMP: February 13, 2025. Number of Gestational Sacs: 1 Gestational Sac Shape: Normal Number of Fetuses: 1 Heart Rate: 103 beats per minute (average) Yolk Sac: Present and unremarkable. Placenta: Presently not well-visualized Amniotic Fluid Volume: Subjectively normal for gestational age. Uterine Abnormalities: Findings suggestive of a 3.4 cm x 1.0 cm x 2.9 cm subchorionic hematoma. Ovaries / Adnexa: Resolving corpus luteum cyst in the right ovary. DIMENSIONS: Parameter Measurement / EGA [place] Rump Length: 2.5 mm/6 weeks and 0 days. Gestational Sac: 1.51 cm/6 weeks and 2 days. Yolk Sac: 2.7 mm/ ESTIMATED GESTATIONAL AGE: By Ultrasound: 6 weeks and 1 day By LMP: 7 weeks and 3 days ESTIMATED DATE OF DELIVERY: By Ultrasound: November 29, 2025 By LMP: November 20, 2025 US/Transvaginal w/Preg US IMPRESSION: Intrauterine gestation with a mean gestational age of 6 weeks and 1 day. Findings suggestive of a small subchorionic hematoma. Reading Location: [place] [address]
[2025-04-06 16:01] LABS: hCG Titer Quant., Serum 23824 mIU/mL (<9 non-preg)
== END | disposition home or self-care (01) ==
PROVIDERS: Referring Provider Obstetrics & Gynecology; Visit Provider Obstetrics & Gynecology
DX: O20.0 Threatened abortion (principal); O99.891 Other specified diseases and conditions complicating pregnancy; R10.9 Unspecified abdominal pain; Z3A.00 Weeks of gestation of pregnancy not specified
CPT/HCPCS: 36415; 76817; 84702

== ENCOUNTER 2025-04-17 06:57 | Emergency (ER) | payer MEDICAID, SELFPAY ==
[2025-04-17 06:58] VITALS: BP 116/61; PULSE 99; RESP 24; TEMP 36.7; O2SAT 100; BMI 25.1
--- NOTE | 2025-04-17 07:36 | EDS_ITS ---
HPI HPI - GI History of Present Illness Chief Complaint: Nausea/Vomiting Informant: patient Abdominal Pain/Flank Pain Quality: Cramping Maximum Severity: Mild Nausea/Vomiting/Emesis GI Symptom: Positive for Nausea and Vomiting Onset: Days Severity: Moderate Diarrhea/Melena/Hematochezia GI Symptom: Positive for Diarrhea Onset: Days Stool Quality: Positive for Loose Associated Symptoms Associated Symptoms: Negative for Dysuria, Frequency, Hematuria or Urgency Narrative Narrative: 24-year-old female G4, P1 Ab2 currently 7 weeks . First visit is scheduled for today. States she has had nausea vomiting diarrhea for last several days. Denies any fever. No dysuria. No vaginal bleeding. Only mild intermittent abdominal cramping currently no abdominal pain. States with a prior was diagnosed with hyperemesis. Prior similar symptoms: Yes Recent Illness/Hospitalization: No PFSH PFSH Medical History Marijuana use during Vaping nicotine dependence, tobacco product History of depression History of anxiety ADHD Home Medications ?Medication ?Instructions ?Recorded ?Last Taken ?Type vit no.95-ferrous 1 tab PO DAILY 07/17/24 Unk nown History fumarate 28 mg-folic acid 800 mcg tablet () Held on 04/17/25. Instructions: HASNT PICKED UP ondansetron HCl 4 mg tablet 4 mg PO Q8H PRN nausea and vomiting 04/06/25 Unknown History ondansetron 4 mg disintegrating 4 mg PO Q6H PRN nausea and 04/17/25 Unknown Rx tablet vomiting #14 tabs Allergy/AdvReac Type Severity Reaction Status Date / Time No Known Allergies Allergy Verified 04/17/25 06:57 Family History Grandmother Hypertension Uncle Diabetes Social History adopted: No household members: significant other, children and other details: roommate number of children: 1 current occupation: [employer] current occupational exposures/hazards: No pets and animals: Yes (Not managing litterbox ) pets and animals: cat(s) history of recent travel: No sexually active: Yes Smoking Status: Current every day smoker tobacco type: e-cigarettes second hand exposure: Yes alcohol intake: current alcohol intake frequency: holidays/special occasions only details: Not while substance use type: marijuana well-balanced diet: about half the time caffeine: Yes Type: coffee eating out: 1-3 times/week during the past year weight has: decreased > 10 lbs what type of physical activity do you participate in: walking frequency: 3-4 times per week duration: 15-30 minutes/day jarrell/synagogue: None seatbelt use: always do you feel safe at home: Yes additional social history: Fiance: Yuniel - maternal handler at [employer] ROS ROS ED ROS Narrative Nausea, vomiting diarrhea. Occasional abdominal cramping. Constitutional Constitutional ED: Denies chills or fever(s) ENT ENT ED: Denies ear pain Cardiovascular Cardiovascular: Denies chest pain Respiratory/Chest Respiratory/Chest: Denies cough or dyspnea Gastrointestinal Gastrointestinal: Reports diarrhea, nausea and vomiting; Denies abdominal pain or constipation Genitourinary Genitourinary ED: Denies dysuria or hematuria Musculoskeletal Musculoskeletal: Denies arthralgias, back pain, myalgias or neck pain Integumentary Denies abscess or Abrasions Neurologic Neurologic: Denies headache(s) Endocrine Endocrinology: Denies polydipsia Hematologic/Lymphatic Hematologic/Lymphatic: Denies easy bleeding Allergic/Immunologic Allergic/Immunologic ED: Denies mouth swelling EXAM Physical Exam Narrative Exam Narrative: Well-appearing 24-year-old female. Vital signs stable afebrile. Initial blood pressure 116/61. She does not look septic or toxic she does not look significantly dehydrated. H EENT exam pupils round reactive light. Moist mucous membranes. No facial droop. Neck nontender. No lymphadenopathy. Lungs clear to auscultation bilaterally. Heart regular rhythm rate about 95 no murmur. Chest wall ribs nontender. Abdomen soft nontender. Nondistended. Normal bowel sounds without peritoneal signs. No obstruction. Moving all 4 extremities. Normal strength. Normal range of motion. Nontender no edema. Back nontender. Neurologic exam awake alert. No focal motor deficits. Very benign appearing exam. Const Vital Signs: 04/17/25 06:58 04/17/25 08:57 04/17/25 10:00 Temperature 98.1 F Temperature Source Oral Pulse Rate 99 86 60 Respiratory Rate 24 H 20 H 18 Blood Pressure 116/61 102/53 L 105/78 Blood Pressure Mean 79 69 87 Pulse Ox 100 100 98 Oxygen Delivery Method Room Air Room Air Positive well nourished and well developed; Negative for obese, cachectic, contractures or unkempt General Appearance ED: well developed and NAD; Negative for unkempt, cachectic, contractures or pallor Nutritional Appearance: Negative for cachectic or obese HEENT Reports moist mucous membranes normocephalic and atraumatic Eyes PERRL and EOMs intact bilaterally Neck no lymphadenopathy, supple and no JVD Resp normal respiratory effort and clear to auscultation bilaterally Cardio regular rate, regular rhythm, S1 normal heart sound, S2 normal heart sound and no murmurs GI non-tender, non-distended and no masses Auscultation: normoactive bowel sounds Palpation: soft; Negative for tender, guarding or rebound tenderness present Back/Spine no CVA tenderness General Back: Negative for CVA tenderness Cervical Spine: Negative for cervical spine tenderness Thoracic Spine / Upper Back: Negative for thoracic spinal tenderness Lumbar Spine / Lower Back: Negative for lumbar spinal tenderness Extremity full ROM General Extremety ED: Negative for edema or tenderness General Extremity: Negative for edema Neuro CN's II-XII intact bilaterally and moves all extremities Sensorium / Orientation: alert, oriented to person, oriented to place and oriented to time; Negative for orientation impaired or confused Motor Exam: strength 5/5 throughout Psych mental status grossly normal and thought process normal Appearance: Negative for unkempt Mood & Affect: anxious Skin no wounds General Skin Exam: Negative for jaundice or pallor Lesions: no lesions Rashes: no rashes Trauma: Negative for abrasion Nails: Negative for discolored MDM MDM MDM Narrative Medical decision making narrative: 24-year-old female currently 6 7 weeks with nausea and vomiting for days to a week. Treated with IV fluids, Zofran and chemistries being obtained. She is having no other symptoms. She does not need any imaging her abdomen is benign she is having no vaginal bleeding. She has been treated for hyperemesis in the past. Repeat exam at 10:11 AM patient doing well. Nausea resolved. She is feeling much better. Repeat exam benign she clinically looks good. Abdomen is nontender. We went over her test results. History & Record Review Discussion w/independent historian: Patient and Family Additional record(s) reviewed:: Prior inpatient record, Prior outpatient record, Prior ED visit and Prior labs Lab Data Attestation: I reviewed the patient's lab results. Lab results narrative: Chemistries show a potassium of 3.2. Gap 11. BUN 7 creatinine 0.41. Glucose 98. Labs: Laboratory Results - last 24 hr 04/17/25 07:40 Sodium 138 Potassium 3.2 L Chloride 109 H Carbon Dioxide 18.0 L Anion Gap 11 BUN 7 Creatinine 0.41 L Estim Creat Clear Calc 171.99 Est GFR (MDRD) Non-Af 142 BUN/Creatinine Ratio 17.6 Glucose 98 Calcium 8.0 Discharge Plan Triage Chief Complaint: Nausea/Vomiting ED Provider: Demian Dick Dx/Rx/DC Orders Clinical Impression: Nausea & vomiting, First trimester Instructions: 1st Trimester, ED Vomiting (Adult) Prescriptions: New ondansetron 4 mg tablet,disintegrating 4 mg PO Q6H PRN (Reason: nausea and vomiting) Qty: 14 0RF No Action ondansetron HCl 4 mg tablet 4 mg PO Q8H PRN (Reason: nausea and vomiting) PNV cmb#95-ferrous fumarate-FA [] 28 mg iron- 800 mcg tablet 1 tab PO DAILY Primary Care Provider: Care Physician,No Primary Referrals: Care Physician,No Primary [Primary Care Provider] - Activity Restrictions/Additional Instructions: Plenty of fluids and rest. Increase your diet slowly as tolerated. Zofran as needed for nausea. You can swallow to let dissolve under your tongue. Follow-up with your FRAME GATE MORTISER OPERATOR. Return if worse. Print Language: French Disposition Disposition: Home, Self Care
[2025-04-17] MEDS: 0.9% Normal Saline (1000mL) 1,000 ML 1000 ML IV (08:04)
[2025-04-17 08:55] LABS: Anion Gap 11 (5-15); BUN 7 mg/dL (4-19); BUN/Creat Ratio 17.6 RATIO (10-20); Calcium,Total 8.0 mg/dL (7.6-11.0); Carbon Dioxide 18.0 mmol/L (21.0-32.0); Chloride 109 mmol/L (98-108); Estimated Creatinine Clearance 171.99 ml/min (50-250); Glucose 98 mg/dL (70-99); Potassium 3.2 mmol/L (3.3-5.1)
[2025-04-17 08:57] VITALS: BP 102/53; PULSE 86; RESP 20; O2SAT 100
[2025-04-17 10:00] VITALS: BP 105/78; PULSE 60; RESP 18; O2SAT 98
[2025-04-17 10:35] VITALS: BP 113/76; PULSE 67; RESP 18; TEMP 36.9; O2SAT 99
== END 2025-04-17 10:36 | disposition home or self-care (01) ==
PROVIDERS: Emergency Provider Emergency Medicine; Visit Provider Emergency Medicine
DX: O21.9 Vomiting of pregnancy, unspecified (principal); O99.331 Smoking (tobacco) complicating pregnancy, first trimester; F17.290 Nicotine dependence, other tobacco product, uncomplicated; Z3A.01 Less than 8 weeks gestation of pregnancy; O99.321 Drug use complicating pregnancy, first trimester; F12.90 Cannabis use, unspecified, uncomplicated
CPT/HCPCS: G0145; 36415; 80048; 80307; 85025; 86703; 86762; 86780; 86803; 86850; 86900; 86901; 87086; 87088; 87340; 87491; 87591; 88175; 96361; 96374; 99285; A4216; J2405

== ENCOUNTER → 2025-04-17 | Outpatient (CLI) | payer MEDICAID, SELFPAY ==
[2025-04-17 17:01] LABS: Hematocrit 37.2 % (37-47); Hemoglobin 12.4 g/dL (12.0-15.0); Immature Granulocytes Count 0.070 X10^3/uL (0.0-0.0); Mean Corp Hgb Conc 33.3 g/dL (32-36); Mean Corpuscular Volume 89.6 fL (81-99); Mean Platelet Vol. 10.2 fl (6.2-12.0); NRBC Flagged by Analyzer 0 % (0-5); Platelet Count 314 K/mm3 (150-450); RBC Distribution Width CV 12.5 % (11.6-14.6); RBC Distribution Width SD 40.8 fl (35.1-43.9); Red Blood Count 4.15 M/mm3 (4.2-5.4); White Blood Count 14.1 K/mm3 (4.4-11.0)
[2025-04-17 17:24] LABS: Barbiturate Urine NEGATIVE (< 200 ng/mL); Benzodiazepine Urine NEGATIVE (< 200 ng/mL); PCP Urine NEGATIVE (< 25 ng/mL); THC Urine PRESUMPTIVE POSITIVE (< 50 ng/mL)
[2025-04-17 17:37] LABS: HIV Nonreactive (Nonreactive); Hepatitis B Surface Antigen Nonreactive (Nonreactive); Hepatitis C Antibody Nonreactive (Nonreactive); Syphilis Antibodies Nonreactive (Nonreactive)
[2025-04-20 06:07] LABS: Chlamydia By Nucleic Acid AMP Negative (Negative); Gonococcus By Nucleic Acid AMP Negative (Negative)
== END | disposition home or self-care (01) ==
LOC: BWCLAB 13:35
PROVIDERS: Visit Provider Obstetrics & Gynecology
DX: O99.320 Drug use complicating pregnancy, unspecified trimester (principal); F12.90 Cannabis use, unspecified, uncomplicated; Z3A.00 Weeks of gestation of pregnancy not specified
CPT/HCPCS: 36415; 80307; 85025; 86703; 86762; 86780; 86803; 86850; 86900; 86901; 87086; 87340; 87491; 87591; G0145; 88175

== ENCOUNTER 2025-08-22 08:10 | Outpatient (CLI) | payer MEDICAID, SELFPAY ==
[2025-08-22 08:32] VITALS: BMI 25.1
[2025-08-22 08:33] VITALS: BP 100/61; PULSE 95; RESP 16; TEMP 37.2; O2SAT 97
--- NOTE | 2025-08-22 08:50 | OB.TRI.HP_ITS ---
HPI - General HPI Narrative GATO BOYCE, is a 24 F who presents with abdominla pain. she co right lowe rabdominla pain ovenright that is improving now spontaneoulsy denies any fevers, vb lof admits good fm no regular ctx Maternal Data Information AALIYAH Calculator Estimated Delivery Date Method Current WG Current Estimate 11/29/25 Ultrasound #1 26w 4d Other Estimates 11/20/25 LMP (Certain) 27w 6d 12/01/25 Ultrasound #2 26w 2d PFSH PFSH Medical History Marijuana use during Vaping nicotine dependence, tobacco product History of depression History of anxiety ADHD Home Medications ?Medication ?Instructions ?Recorded ?Last Taken ?Type vit no.95-ferrous 1 tab PO DAILY 07/17/24 Unk nown History fumarate 28 mg-folic acid 800 mcg tablet () Held on 04/17/25. Instructions: HASNT PICKED UP ondansetron 4 mg disintegrating 4 mg PO Q6H PRN nausea and 07/20/25 Unknown Rx tablet vomiting #90 tabs cephalexin 500 mg capsule 500 mg PO TID 7 days #21 cap s 08/23/25 Unknown Rx Allergy/AdvReac Type Severity Reaction Status Date / Time No Known Allergies Allergy Verified 08/22/25 08:59 Family History Grandmother Hypertension Uncle Diabetes Social History adopted: No household members: significant other, children and other details: roommate number of children: 1 current occupation: [employer] current occupational exposures/hazards: No pets and animals: Yes (Not managing litterbox ) pets and animals: cat(s) history of recent travel: No sexually active: Yes Smoking Status: Current every day smoker tobacco type: e-cigarettes second hand exposure: Yes alcohol intake: current alcohol intake frequency: holidays/special occasions only details: Not while substance use type: marijuana well-balanced diet: about half the time caffeine: Yes Type: coffee eating out: 1-3 times/week during the past year weight has: decreased > 10 lbs what type of physical activity do you participate in: walking frequency: 3-4 times per week duration: 15-30 minutes/day jarrell/episcopal: None seatbelt use: always do you feel safe at home: Yes additional social history: Fiance: Yuniel - maternal handler at [employer] History 4 Elective abortions Hx Para 1 Spontaneous abortions 2 Hx # Term Pregnancies 1 Ectopic pregnancies Hx # Pregnancies Multiple births # of living children 1 Past Pregnancies Del. Date Name GA/Weeks Outcome Route Bth Weight Infant Gen Labor Lgth Anesthesia Del Locatn Provider FOB 10/18/22 7 spontaneous 01/16/23 8 spontaneous 07/18/24 Thordeangelo Howell 41 live - full term 8lbs 11oz Male 20 hours epidural [facility] Shilpa Brice Delivery Date: 10/18/22 Last Updated by: Sera Hutton RN Cytote Delivery Date: 01/16/23 Last Updated by: Sera Hutton RN Cytotec Delivery Date: 07/18/24 Last Updated by: Sera Hutton RN Hyperemesis, Shoulder Dystocia Visit Details Expected Delivery Route/Plan Labor Preferences- CB/BF classes: [] labor support person: [] labor intervention preferences: [] pain management options preferred: [] cut cord/dad catch: [] : [] PP control planned: [] discussed possible routes of delivery and associated risks: [] special requests: [] Plans Covid status: [] Flu vaccine: declines Tdap vaccine: [] Rhogam: [] LARC form signed: yes Problem list reviewed and updated with the most current plan of care details and appropriate orders placed. Relevant counseling for the gestational age provided. Continue routine care and follow up unless otherwise noted in visit notes/problem list details OB Flowsheet Initial Weight: Not Recorded Date -?-?-?-?-?-?-?-?-?-?-?-?- EGA Weight BP Urine Prot -?-?-?-?-?-?-?-?-?-?-?-?- Glucose FHR FuHt Pres Dilation -?-?-?-?-?-?-?-?-?-?-?-?- Effaced St Visit Note 04/17/25 -?-?-?-?-?-?-?-?-?-?-?-?- 7w 5d 121 lb 4 oz 97/61 -?-?-?-?-?-?-?-?-?-?-?-?- 165 -?-?-?-?-?-?-?-?-?-?-?-?- JV- CRL consiste nt with last ultrasound but not LMP. There is a large SUMANTH measuring 2.3 x 1.5 cm tracking the length of the gestational sac down to the cervix. She had some bleeding earlier that has stopped. 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 consulting optum. Jeremy RANGELT. 05/17/25 -?-?-?-?-?-?-?-?-?-?-?-?- 12w 0d 121 lb 4 oz 103/56 1+ -?-?-?-?-?-?-?-?-?-?-?-?- Negative 170 -?-?-?-?-?-?-?-?-?-?-?-?- KW- no vb/crampi ng. still having morning sickness but did not want to use the pump at home because she would have to change out the needles every day. N/V is somewhat controlled with oral zofran and she is doing well on it. [facility] orde red. 06/11/25 -?-?-?-?-?-?-?-?-?-?-?-?- 15w 4d 119 lb 3 oz 103/68 Nega tive -?-?-?-?-?-?-?-?-?-?-?-?- Negative 160 -?-?-?-?-?-?-?-?-?-?-?-?- KW- no vb/crampi ng. still having N/V but using oral zofran and doing ok with it. US scheduled. FHT with handheld US 07/11/25 -?-?-?-?-?-?-?-?-?-?-?-?- 19w 6d 125 lb 1 oz 91/56 Nega tive -?-?-?-?-?-?-?-?-?-?-?-?- Negative 150 -?-?-?-?-?-?-?-?-?-?-?-?- Sm- no vb crampi ng 08/08/25 -?-?-?-?-?-?-?-?-?-?-?-?- 23w 6d 128 lb 1 oz 101/67 Nega tive -?-?-?-?-?-?-?-?-?-?-?-?- Negative 154 -?-?-?-?-?-?-?-?-?-?-?-?- MH-No VB. Eligio F [facility]-viral URI. Med list given. ROS Constitutional Constitutional: Reports systems reviewed and no addt'l complaints, except as documented and as per HPI ENT HEENT: Reports systems reviewed and no addt'l complaints, except as documented Cardiovascular Cardiovascular: Reports systems reviewed and no addt'l complaints, except as documented Respiratory/Chest Respiratory/Chest: Reports systems reviewed and no addt'l complaints, except as documented Gastrointestinal Gastrointestinal: Reports as per HPI Genitourinary Genitourinary: Reports as per HPI Musculoskeletal Musculoskeletal: Reports systems reviewed and no addt'l complaints, except as documented Integumentary Integumentary: Reports systems reviewed and no addt'l complaints, except as documented Neurologic Neurologic: Reports systems reviewed and no addt'l complaints, except as documented Physical Exam Const alert, oriented x3 and no apparent distress HEENT Head and Scalp: normocephalic and atraumatic Neck full ROM and no lymphadenopathy Chest inspection of chest normal Resp normal respiratory effort GI GI Narrative: gravid, abdomen nontender, AGA Manual OB Exam: dilated 0, effaced and station NST FHR Rate Baby A Baseline: 140 Assessment & Plan (1) Abdominal pain: COMMENT: seen in triage and no PTL, pain resolved, fu as OP if recurs may need imaging (2) : QUALIFIERS: Weeks of gestation: 23 weeks Qualified Code(s): Z3A.23 - 23 weeks gestation of COMMENT: Discussed genetic/carrier, afp declined. anatomy reveiwed- EF in heart. (3) Supervision of high-risk : QUALIFIERS: Trimester: second trimester Qualified Code(s): O09.92 - Supervision of high risk , unspecified, second trimester COMMENT: PRR,, AALIYAH 11/20/25, PC: Yeni Mcrae?: Yuniel Charges/Coding Multi Select Codes Visit Charges Office Visit/Consults: 62088 OV L3 Est 20min
[2025-08-22 08:57] LABS: Hematocrit 33.7 % (37-47); Hemoglobin 11.5 g/dL (12.0-15.0); Immature Granulocytes Count 0.150 X10^3/uL (0.0-0.0); Mean Corp Hgb Conc 34.1 g/dL (32-36); Mean Corpuscular Volume 92.1 fL (81-99); Mean Platelet Vol. 10.0 fl (6.2-12.0); NRBC Flagged by Analyzer 0 % (0-5); Platelet Count 277 K/mm3 (150-450); RBC Distribution Width CV 12.2 % (11.6-14.6); RBC Distribution Width SD 41.0 fl (35.1-43.9); Red Blood Count 3.66 M/mm3 (4.2-5.4); White Blood Count 14.4 K/mm3 (4.4-11.0)
[2025-08-22 08:59] LABS: Color, Urine Straw (Yellow); Glucose, Dipstick Normal (Normal); Ketone-Dipstick Negative (Negative); Leukocyte Esterase-Dipstick Negative /ul (Negative); Nitrite-Dipstick Negative (Negative); Occult Blood-Urine Negative /ul (Negative); Protein-Dipstick Negative (Negative); Specific Gravity, Urine 1.010 (1.002-1.030); Urine Bilirubin Dipstick Negative (Negative)
== END 2025-08-22 09:10 | disposition home or self-care (01) ==
LOC: WPOUT 08:17 → WP 08:17
PROVIDERS: Referring Provider Obstetrics & Gynecology; Visit Provider Obstetrics & Gynecology
DX: O99.891 Other specified diseases and conditions complicating pregnancy (principal); R10.9 Unspecified abdominal pain; O09.92 Supervision of high risk pregnancy, unspecified, second trimester; O99.332 Smoking (tobacco) complicating pregnancy, second trimester; F17.290 Nicotine dependence, other tobacco product, uncomplicated; Z3A.23 23 weeks gestation of pregnancy
CPT/HCPCS: 36415; 59050; 81002; 85025; 87086; 87088; 99221; G0378

== ENCOUNTER → 2025-09-04 | Outpatient (CLI) | payer MEDICAID, SELFPAY ==
[2025-09-04 16:35] LABS: Hematocrit 35.6 % (37-47); Hemoglobin 11.6 g/dL (12.0-15.0); Immature Granulocytes Count 0.150 X10^3/uL (0.0-0.0); Mean Corp Hgb Conc 32.6 g/dL (32-36); Mean Corpuscular Volume 93.2 fL (81-99); Mean Platelet Vol. 10.3 fl (6.2-12.0); NRBC Flagged by Analyzer 0 % (0-5); Platelet Count 265 K/mm3 (150-450); RBC Distribution Width CV 12.2 % (11.6-14.6); RBC Distribution Width SD 41.7 fl (35.1-43.9); Red Blood Count 3.82 M/mm3 (4.2-5.4); White Blood Count 13.3 K/mm3 (4.4-11.0)
[2025-09-04 17:23] LABS: HIV Nonreactive (Nonreactive); Syphilis Antibodies Nonreactive (Nonreactive)
[2025-09-04 17:25] LABS: Glucose Challenge Gest 1H 50g 75 mg/dL (70-140)
== END | disposition home or self-care (01) ==
LOC: BWCLAB 15:27
PROVIDERS: Nurse Practitioner Women's Health; Visit Provider Obstetrics & Gynecology
DX: O09.90 Supervision of high risk pregnancy, unspecified, unspecified trimester (principal); Z13.1 Encounter for screening for diabetes mellitus; Z3A.00 Weeks of gestation of pregnancy not specified
CPT/HCPCS: 36415; 82950; 85025; 86703; 86780

== ENCOUNTER → 2025-09-26 | Outpatient (CLI) | payer MEDICAID, SELFPAY | END | disposition home or self-care (01) | LOC: LABSPEC 16:25 | PROVIDERS: Visit Provider Advanced Practice Midwife | DX: R10.31 Right lower quadrant pain (principal) | CPT/HCPCS: 87086; 87088 ==